=== PATIENT | female | born 1955 | race Caucasian/White ===

== ENCOUNTER → 2024-06-30 | Outpatient (CLI) | payer OTHER ==
[~2024-06-30] MED LIST: ASPI81CH PO; ATOR80 PO; CLON.5 PO; DIVA250ER PO; MAGOXI400 PO; METO25ER; Omeprazole20 M1; TUMS300 MG PO; VENL150ER PO; VENL75ER PO
== END ==
LOC: LAB SHORT 11:31 → LAB 11:31
DX: L08.0 Pyoderma (principal)
CPT/HCPCS: 87070; 87205